=== PATIENT | male | born 1990 | race Caucasian/White ===

== ENCOUNTER 2023-11-12 09:37 | Emergency (ER) | payer MEDICAID ==
[~2023-11-12] VITALS: Ht 182.9 cm; Wt 83.9 kg
[2023-11-12 09:45] VITALS: BP 136/85; TEMP 99.9
[2023-11-12] MEDS ORDERED: IBUP-1955 PO (09:47)
[2023-11-12] MEDS ORDERED: AMOX-430 PO (09:47)
[2023-11-12 09:49] VITALS: O2SAT 98
== END 2023-11-12 09:51 | disposition home or self-care (01) ==
LOC: ER 09:50
DX: J02.9 Acute pharyngitis, unspecified (principal); R50.9 Fever, unspecified; Z60.2 Problems related to living alone
CPT/HCPCS: 86403-TC; 87070-TC